=== PATIENT | female | born 1980 | race Caucasian/White ===

== ENCOUNTER → 2019-11-06 | Outpatient (CLI) | payer OTHER, MEDICARE ==
[2019-11-06 13:47] LABS: HEMATOCRIT 41.3 % (37.0-47.0); MEAN CELL VOLUME 95.8 fl (81.0-99.0); MEAN CORPUSCULAR HGB 30.6 pg (27.0-31.0); MEAN PLATELET VOLUME 11.1 fl (9.6-12.3); RED BLOOD COUNT 4.31 10*6/uL (4.10-5.10); WHITE BLOOD COUNT 5.2 10*3/uL (4.8-10.8)
[2019-11-06 13:56] LABS: INTERNATIONAL NORM RATIO 0.9 (2.0-3.5)
[2019-11-06 14:21] LABS: ALBUMIN 3.8 gm/dl (3.1-4.5); ALKALINE PHOSPHATASE 57 U/L (45-117); BUN 12 mg/dl (7-24); CHLORIDE 109 mmol/L (98-107); CHOLESTEROL 199 mg/dL (<200); CREATININE 0.75 mg/dL (0.55-1.02); SGOT/AST 17 IU/L (3-35); SGPT/ALT 21 U/L (12-78); SODIUM 140 mmol/L (136-145); TOTAL PROTEIN 7.5 gm/dL (6.4-8.2); TRIGLYCERIDES 77 mg/dl (<150); VLDL CHOLESTEROL 15 mg/dL (6-40)
[2019-11-06 14:31] LABS: HDL CHOLESTEROL 54 mg/dl (40-60); LDL CHOLESTEROL 130 mg/dL (9-159)
== END ==
LOC: LAB 12:57
PROVIDERS: Internal Medicine
DX: Z01.818 Encounter for other preprocedural examination (principal); M25.572 Pain in left ankle and joints of left foot